=== PATIENT | female | born 1980 ===

== ENCOUNTER 2018-01-26 12:13 | Observation (INO) | payer MEDICAID, OTHER ==
[2018-01-26 12:13] VITALS: BMI 27.3
--- NOTE | 2018-01-26 14:30 | ED PDOC ---
HPI: General Adult Time Seen by Provider: 01/26/18 13:48 Chief Complaint (Nursing): Abnormal Skin Integrity Chief Complaint (Provider): Abnormal Skin Integrity History Per: Patient Onset/Duration Of Symptoms: Days Current Symptoms Are (Timing): Still Present Additional Complaint(s): 37 year old female presents to the ED for a pre-operative evaluation. Patient was sent by Dr. Amanda, as she plans to take the patient to the operating room later today for a washout of right breast. Patient states she has been experiencing an intermittent abscess to her right breast since last year and has had two I&Ds performed in Dr. Cano office, which were unsuccessful at draining it. Patient reports the most recent flare of the abscess started two days ago. Additionally, patient states, at onset of symptoms, she was . Patient states pain has been localized, non-radiating. Otherwise (-) fever, (-) chills. PMD: Dr. Devonte Perez LNMP: 01/24/2018 Past Medical History Reviewed: Historical Data, Nursing Documentation, Vital Signs Vital Signs: Last Vital Signs Temp 97.6 F 01/26/18 18:55 Pulse 80 01/26/18 18:55 Resp 20 01/26/18 18:55 BP 126/85 01/26/18 18:55 Pulse Ox 100 01/28/18 14:58 - Medical History PMH: No Chronic Diseases - Family History Family History: States: Unknown Family Hx - Social History Current smoker - smoking cessation education provided: Yes (half a pack a day ) Alcohol: None Drugs: Denies - Immunization History Hx Tetanus Toxoid Vaccination: Yes - Home Medications Home Medications: Ambulatory Orders Medication Instructions Recorded Cephalexin [Keflex] 500 mg PO Q12 #14 capsule 01/26/18 - Allergies Allergies/Adverse Reactions: Allergies Allergy/AdvReac Type Severity Reaction Status Date / Time No Known Allergies Allergy Verified 10/18/15 19:35 Review of Systems ROS Statement: Except As Marked, All Systems Reviewed And Found Negative Constitutional: Positive for: Other (pre-operative examination of right breast for abscess removal ). Negative for: Fever, Chills Physical Exam - Reviewed Nursing Documentation Reviewed: Yes Vital Signs Reviewed: Yes - Physical Exam Comments: GENERAL APPEARANCE: Patient is awake, resting comfortably, alert, oriented x 3, in no distress. NECK: Supple, FROM ENT: Mucus membranes moist. BREAST: (+)5 cm x 4 cm fluctuant abscess with tenderness, erythema, and warmth to the right breast at 7:00 to 10:00 position, (-) nipple discharge, (-) no lymphadenopathy. (+) central serosanguinous drainage. Remainder of breast: (-) tenderness, (-) axillary tenderness. Ngoc, pharmacist, was present during the entire exam. PULMONARY: lungs clear to auscultation bilaterally, no rhonchi, no wheezing, no rales. Speaking in full sentences, respirations even and nonlabored. CARDIAC: regular rate and rhythm, no murmur, no gallop. ABDOMEN: soft, nontender, nondistended (-) guarding (-) CVA tenderness. EXTREMITIES: no deformity, full range of motion, no tenderness. - Laboratory Results Result Diagrams: 01/26/18 14:05 01/26/18 14:05 Urine POC: Negative - ECG O2 Sat by Pulse Oximetry: 100 (RA) Pulse Ox Interpretation: Normal Medical Decision Making Medical Decision Making: Time: 1405 Impression: Pre-Op Exam, Breast Abscess Plan: -- IV access -- Type and Screen -- EKG -- CMP -- Urine Test -- CBC with differentials -- PTT -- Prothrombin Time -- Chest One View XR -- Urinalysis Time: 1443 CXR RESULTS FINDINGS: LUNGS: Clear. PLEURA: No pneumothorax or pleural fluid seen. CARDIOVASCULAR: Normal. OSSEOUS STRUCTURES: No significant abnormalities. VISUALIZED UPPER ABDOMEN: Normal. OTHER FINDINGS: None. IMPRESSION: No active disease. 1500 EKG: NSR @ 74bpm (-) ST elevations, QTc 472 1530 Labs reviewed. WBC 13.1. Consult to Dr Amanda. [address] Amanda, patient to go to OR. Dr Amanda made aware of pe-operataive work up and requests 1gm IV Ancef and NS bolus. Ancef 1gm and 1L NS bolus ordered. 1618 Patient going to OR. Vitals stable. Scribe Attestation: Documented by Cierra Camara, acting as a scribe for Juani Monahan PA-C. Provider Scribe Attestation: All medical record entries made by the Scribe were at my direction and personally dictated by me. I have reviewed the chart and agree that the record accurately reflects my personal performance of the history, physical exam, medical decision making, and the department course for this patient. I have also personally directed, reviewed, and agree with the discharge instructions and disposition. Disposition - Clinical Impression Clinical Impression: Breast abscess Discussed With : Imer Amanda Doctor Will See Patient In The: Hospital (taking patient to OR) Counseled Patient/Family Regarding: Diagnosis - Disposition Disposition Time: 16:18 Condition: STABLE - Pt Status Changed To: Hospital Disposition Of: SDS- Endo,OR,Cath,IR (OR for wash out of breast per Dr Amanda) - POA Present On Arrival: None Results - Lab Results Lab Results: 01/26/18 01/26/18 01/26/18 14:05 14:05 14:05 WBC RBC Hgb Hct MCV MCH MCHC RDW Plt Count MPV Neut % (Auto) Lymph % (Auto) [place] % (Auto) Eos % (Auto) Baso % (Auto) Neut # (Auto) Lymph # (Auto) [place] # (Auto) Eos # (Auto) Baso # (Auto) PT 11.8 INR 1.1 APTT 30.3 Sodium 139 Potassium 4.0 Chloride 102 Carbon Dioxide 26 Anion Gap 15 BUN 13 Creatinine 0.4 L Est GFR ( Amer) > 60 Est GFR (Non-Af Amer) > 60 Random Glucose 267 H Calcium 9.1 Total Bilirubin 0.6 AST 23 ALT 26 Alkaline Phosphatase 89 Total Protein 7.7 Albumin 4.0 Globulin 3.7 Albumin/Globulin Ratio 1.1 Blood Type A NEGATIVE Antibody Screen Negative BBK History Checked Patient has bt 01/26/18 14:05 WBC 13.1 H RBC 4.92 Hgb 13.6 Hct 40.7 MCV 82.7 MCH 27.8 MCHC 33.6 RDW 13.4 Plt Count 402 H MPV 7.3 Neut % (Auto) 59.9 Lymph % (Auto) 32.3 [place] % (Auto) 6.2 Eos % (Auto) 0.9 Baso % (Auto) 0.7 Neut # (Auto) 7.8 H Lymph # (Auto) 4.2 [place] # (Auto) 0.8 Eos # (Auto) 0.1 Baso # (Auto) 0.1 PT INR APTT Sodium Potassium Chloride Carbon Dioxide Anion Gap BUN Creatinine Est GFR ( Amer) Est GFR (Non-Af Amer) Random Glucose Calcium Total Bilirubin AST ALT Alkaline Phosphatase Total Protein Albumin Globulin Albumin/Globulin Ratio Blood Type Antibody Screen BBK History Checked
--- NOTE | 2018-01-26 14:45 | RAD ---
PROCEDURE: CHEST RADIOGRAPH, 1 VIEW HISTORY: pre-op COMPARISON: None available. FINDINGS: LUNGS: Clear. PLEURA: No pneumothorax or pleural fluid seen. CARDIOVASCULAR: Normal. OSSEOUS STRUCTURES: No significant abnormalities. VISUALIZED UPPER ABDOMEN: Normal. OTHER FINDINGS: None. IMPRESSION: No active disease.
[2018-01-26 14:47] LABS: BASO # 0.1 K/uL (0.0-0.2); BASO % 0.7 % (0.0-2.0); EOS # 0.1 K/uL (0.0-0.7); EOS % 0.9 % (0.0-4.0); HEMOGLOBIN 13.6 g/dL (12.0-16.0); LYMPH # 4.2 K/uL (1.0-4.3); LYMPH % 32.3 % (20.0-40.0); MEAN CELL VOLUME 82.7 fl (81.0-99.0); MEAN CORPUSCULAR HEMOGLOBIN 27.8 pg (27.0-31.0); MEAN CORPUSCULAR HGB CONC 33.6 g/dL (33.0-37.0); MEAN PLATELET VOLUME 7.3 fl (7.2-11.7); MONO # 0.8 K/uL (0.0-0.8); MONO % 6.2 % (0.0-10.0); NEUT # 7.8 K/uL (1.8-7.0); NEUT % 59.9 % (50.0-75.0); NRBC % 0.1 % (0.0-0.0); RBC 4.92 Mil/uL (3.80-5.20); RED CELL DISTRIBUTION WIDTH 13.4 % (11.5-14.5); WHITE BLOOD COUNT 13.1 K/uL (4.8-10.8)
[2018-01-26 14:58] LABS: ALB/GLOB RATIO 1.1 (1.0-2.1); ALT/SGPT 26 U/L (9-52); AST/SGOT 23 U/L (14-36); BLOOD UREA NITROGEN 13 mg/dl (7-17); CALCIUM 9.1 mg/dL (8.4-10.2); GFR AFRICAN-AMERICAN > 60; GFR NON-AFRICAN AMERICAN > 60
[2018-01-26 15:05] LABS: INR 1.1 (0.9-1.2); PARTIAL THROMBOPLASTIN TIME 30.3 Seconds (25.6-37.1); PROTHROMBIN TIME 11.8 Seconds (9.8-13.1)
[2018-01-26] MEDS ORDERED: ceFAZolin 1 GM in Sodium Chloride 0.9% 100 ML IVPB STA (15:54)
[2018-01-26] MEDS ORDERED: Sodium Chloride 0.9% 1,000 ML IV SCH (16:00)
--- NOTE | 2018-01-26 16:27 | CP.PCM.HP ---
History of Present Illness - History of Present Illness History of Present Illness: General Surgery H&P. Dr. Amanda 37yo F with no significant PMHx here for evaluation of right breast pain. Patient states that she has been having recurrent pain, redness and discharge over the past year. She has seen Dr. Amanda in the office multiple times with needle aspiration. She went to the ED last week and was discharged with oral antibiotics with mild improvement, unknown name of antibiotic. She denies any fevers or chills. No N/V/D. Does state that it has been draining purulent material over the past week as well, with increased pain and swelling. No Chest pain, no SOB. No N/V/D. No Abd Pain. No Urinary complaints. Denies possibility of current . No sick contacts. Patient accompanied by her Fiance, Ray: [phone] PMHx: denies PSHx: x2 Family Hx: non-contributory Social Hx: Current 1/2ppd for the past 20+ years. Denies ETOH. Denies illicit drugs. NKDA Present on Admission - Present on Admission Any Indicators Present on Admission: No Review of Systems - Review of Systems All systems: reviewed and no additional remarkable complaints except - Constitutional Constitutional: absent: Chills, Fever - Breasts Breasts: Pain, Swelling - Cardiovascular Cardiovascular: absent: Chest Pain, Dyspnea - Respiratory Respiratory: absent: Cough, Dyspnea - Gastrointestinal Gastrointestinal: absent: Abdominal Pain, Diarrhea, Nausea, Vomiting Past Patient History - Infectious Disease Hx of Infectious Diseases: None - Tetanus Immunizations Tetanus Immunization: Unknown - Past Medical History & Family History Past Medical History?: No Past Family History: Reviewed and not pertinent - Past Social History Smoking Status: Heavy Smoker > 10 Cigarettes Daily Alcohol: None Drugs: Denies - ENDOCRINE/METABOLIC Hx Systemic Lupus Erythematosus: (Gestational diabetes) - PSYCHIATRIC Hx Emotional Abuse: No Hx Physical Abuse: No - SURGICAL HISTORY Hx Section: Yes (x2) - ANESTHESIA Hx Anesthesia: Yes Hx Anesthesia Reactions: No Hx Malignant Hyperthermia: No Meds Allergies/Adverse Reactions: Allergies Allergy/AdvReac Type Severity Reaction Status Date / Time No Known Allergies Allergy Verified 10/18/15 19:35 Physical Exam - Constitutional Appears: Well, Non-toxic, No Acute Distress - Head Exam Head Exam: ATRAUMATIC, NORMAL INSPECTION, NORMOCEPHALIC - Eye Exam Eye Exam: EOMI, Normal appearance. absent: Scleral icterus - ENT Exam ENT Exam: Mucous Membranes Moist - Respiratory Exam Respiratory Exam: NORMAL BREATHING PATTERN. absent: Accessory Muscle Use, Respiratory Distress - Cardiovascular Exam Cardiovascular Exam: RRR. absent: JVD - GI/Abdominal Exam GI & Abdominal Exam: Soft. absent: Distended, Guarding, Rebound, Tenderness - Extremities Exam Extremities exam: Positive for: normal inspection. Negative for: calf tenderness - Neurological Exam Neurological exam: Alert, Oriented x3 - Psychiatric Exam Psychiatric exam: Normal Affect, Normal Mood - Skin Additional comments: Right breast periareolar induration, and fluctuance. Yellow, purulent discharge noted and able to be expressed. Results - Vital Signs Recent Vital Signs: Last Vital Signs Temp 98.4 F 01/26/18 13:04 Pulse 74 01/26/18 14:31 Resp 16 01/26/18 13:04 BP 118/77 01/26/18 13:04 Pulse Ox 100 01/26/18 15:56 - Labs Result Diagrams: 01/26/18 14:05 01/26/18 14:05 Labs: Laboratory Results - last 24 hr 01/26/18 01/26/18 01/26/18 14:05 14:05 14:05 WBC 13.1 H RBC 4.92 Hgb 13.6 Hct 40.7 MCV 82.7 MCH 27.8 MCHC 33.6 RDW 13.4 Plt Count 402 H MPV 7.3 Neut % (Auto) 59.9 Lymph % (Auto) 32.3 [place] % (Auto) 6.2 Eos % (Auto) 0.9 Baso % (Auto) 0.7 Neut # (Auto) 7.8 H Lymph # (Auto) 4.2 [place] # (Auto) 0.8 Eos # (Auto) 0.1 Baso # (Auto) 0.1 PT 11.8 INR 1.1 APTT 30.3 Sodium 139 Potassium 4.0 Chloride 102 Carbon Dioxide 26 Anion Gap 15 BUN 13 Creatinine 0.4 L Est GFR ( Amer) > 60 Est GFR (Non-Af Amer) > 60 Random Glucose 267 H Calcium 9.1 Total Bilirubin 0.6 AST 23 ALT 26 Alkaline Phosphatase 89 Total Protein 7.7 Albumin 4.0 Globulin 3.7 Albumin/Globulin Ratio 1.1 Assessment & Plan - Assessment and Plan (Free Text) Assessment: 37yo F with R Breast Abscess Plan: - To OR for I&D today - Ancef x1 dose now - NPO - f/u wound culture Further recs as per Dr. Vasiliy Flower PGY1 surgery pager: [phone]
[2018-01-26] MEDS ORDERED: Midazolam 2 MG/2 ML VIAL ONE (16:33)
[2018-01-26] MEDS ORDERED: Lidocaine 4% (Laryng-O-Jet) Kit MM ONE (16:33)
[2018-01-26] MEDS ORDERED: Propofol 10 mg/ml Inj (20 ML) ONE (16:33)
[2018-01-26] MEDS ORDERED: Succinylcholine 200 mg/10 ml Inj IV ONE (16:39)
[2018-01-26] MEDS ORDERED: Lactated Ringer's 1,000 ML IV ONE (16:40)
--- NOTE | 2018-01-26 17:17 | PCM.SURG1 ---
Surgeon's Initial Post Op Note - Surgeon's Notes Surgeon: Dr. Amanda Seo Analyst: Ching PGY1 Type of Anesthesia: General LMA Pre-Operative Diagnosis: Right breast abscess Operative Findings: see operative report Post-Operative Diagnosis: same Operation Performed: Incision and drainage of Right Breast abscess Specimen/Specimens Removed: Wound culture. Right breast tissue Estimated Blood Loss: EBL {In ML}: 5 Blood Products Given: N/A Drains Used: No Drains Post-Op Condition: Good Date of Surgery/Procedure: 01/26/18 Time of Surgery/Procedure: 17:17
[2018-01-26] MEDS ORDERED: Oxycodone/Acetaminophen 5/325 mg Tab PO PRN (17:57)
[2018-01-26 18:44] LABS: SQUAMOUS EPITHIAL 1 /hpf (0-5); URINE BACTERIA RARE (<OCC); URINE BILIRUBIN NEGATIVE (NEGATIVE); URINE BLOOD NEGATIVE (NEGATIVE); URINE CLARITY CLEAR (Clear); URINE COLOR YELLOW (YELLOW); URINE GLUCOSE (UA) >=500 mg/dL (Normal); URINE LEUKOCYTE ESTERASE NEG Leu/uL (Negative); URINE PROTEIN NEGATIVE (NEGATIVE); URINE UROBILINOGEN 0.2-1.0 mg/dL (0.2-1.0)
[2018-01-26 18:56] VITALS: BP 126/85; PULSE 80; RESP 20; TEMP 97.6
--- NOTE | 2018-01-26 20:57 | OP ---
PROCEDURE DATE: 01/26/[address] Imer Amanda MD HISTOLOGIST: Dr Flower. ANESTHESIA: General, Dr. Ivy. PREOPERATIVE DIAGNOSIS Abscess right breast. POSTOPERATIVE DIAGNOSIS Abscess right breast. PROCEDURE: Incision and drainage of right breast abscess. DESCRIPTION OF OPERATION: With the patient in the supine position under adequate general anesthesia, the right breast was prepped and draped in usual sterile manner. The patient was noted to have a large fluctuant mass occupying the upper outer portion of the areolar area extending to the nipple. In addition, there was a smaller area of induration higher up in the right upper outer quadrant which did not appear fluctuant at this time. A radial incision was made into the prominent portion of the larger collection with drainage of a large quantity of thin purulent appearing material which appeared to express under some pressure. The cavity was irrigated and then the cavity wall was grasped and segments taken for biopsy. Cultures were sent as well. An iodoform packing was then placed followed by a dry sterile dressing. The patient tolerated the procedure well and transferred to recovery room in stable condition. Estimated blood loss for the procedure was 5 mL. Imer Amanda MD JIM
--- NOTE | 2018-01-27 16:47 | CARD ---
APPROVED REPORT EKG Measurement Heart [id number] <Conclusion> Normal sinus rhythm Nonspecific T wave abnormality Prolonged QT Abnormal ECG artefact present
[2018-01-28 14:59] VITALS: O2SAT 100
== END 2018-01-26 19:35 | disposition home or self-care (01) ==
LOC: H.ER 12:13 → H.ERHOLD 17:24 → H.MEDSURG1 18:49
PROVIDERS: ADMIT Specialist; ATTEND Specialist
DX: N61.1 Abscess of the breast and nipple (principal); F17.210 Nicotine dependence, cigarettes, uncomplicated
CPT/HCPCS: 19020; 19101; 71045; 80053; 81003; 81025; 85025; 85610; 85730; 86850; 86900; 87070; 88305; 93005; 99283; G0378; J0330; J0690; J1885; J2250; J2704; J3010; J7030; J7120